=== PATIENT | female | born 1995 | race Caucasian/White ===

== ENCOUNTER 2020-06-25 20:30 | Emergency (ER) | payer OTHER ==
[~2020-06-25] VITALS: Ht 157.5 cm; Wt 93.1 kg
[2020-06-25 20:30] VITALS: BP 126/73
[2020-06-25] MEDS ORDERED: ASPI81CH33 PO (20:52)
[2020-06-25] MEDS ORDERED: PRED10PA2 PO (20:52)
[2020-06-25] MEDS ORDERED: KETOROLAC 30 MG/ML 1ML VIAL IV ONE (21:45)
[2020-06-25 21:52] LABS: HEMATOCRIT 39.1 % (36.0-47.0); HEMOGLOBIN 12.2 g/dl (12.0-15.5); MEAN CORPUSCULAR HEMOGLOBIN 26.8 pg (27.0-33.0); MEAN CORPUSCULAR HGB CONC 31.2 g/dl (32.0-36.5); MEAN CORPUSCULAR VOLUME 85.9 fl (80.0-96.0); PLATELET COUNT, AUTOMATED 369 10^3/uL (150-450); RED BLOOD COUNT 4.55 10^6/uL (4.00-5.40); WHITE BLOOD COUNT 14.5 10^3/uL (4.0-10.0)
[2020-06-25] MEDS ORDERED: ISOVUE-370 76% 100ML VIAL As Ordered ONE (21:57)
--- NOTE | 2020-06-25 22:33 | REPVR ---
PROCEDURE INFORMATION: Exam: CT Neck With Contrast Exam date and time: 06/25/2020 10:17 PM Age: 25 years old Clinical indication: Neck pain; Additional info: Left jaw swelling, dental decay TECHNIQUE: Imaging protocol: Computed tomography images of the neck with intravenous contrast. Radiation optimization: All CT scans at this facility use at least one of these dose optimization techniques: automated exposure control; mA and/or kV adjustment per patient size (includes targeted exams where dose is matched to clinical indication); or iterative reconstruction. Contrast material: ISOVUE 370; Contrast volume: 75 ml; Contrast route: INTRAVENOUS (IV); COMPARISON: No relevant prior studies available. FINDINGS: Paranasal sinuses: There is mild sinus mucosal disease, with no air-fluid level identified. Nasopharynx: Unremarkable. Dental: There is a periapical lucency associated with a left mandibular molar tooth. There is no overlying periosteal abscess. Oropharynx: Unremarkable. No significant tonsillar enlargement. Hypopharynx: Unremarkable. Larynx: Unremarkable. Normal epiglottis. Retropharyngeal space: Unremarkable. Submandibular/Parotid glands: Normal. Glands are normal in size. Thyroid: Normal. No enlarged or calcified nodules. Lymph nodes: Unremarkable. No lymphadenopathy. Trachea: Visualized trachea is unremarkable. Lungs: Unremarkable as visualized. Bones/joints: Unremarkable. No acute fracture. IMPRESSION: Periapical lucency associated with the left mandibular molar tooth. No overlying periosteal abscess is seen. Electronically signed by: Earnestine Beasley On 06/25/2020 22:33:34 PM
[2020-06-25 22:35] LABS: ANISOCYTOSIS 1+; ATYPICAL LYMPH 4 % (0-5); BASOPHILS 1 % (0-1); EOSINOPHILS 3 % (0-3); LYMPHOCYTES 28 % (16-44); MONOCYTES 3 % (0-5); NEUTROPHILS 61 % (28-66); PLATELET ESTIMATE NORMAL (NORMAL)
[2020-06-25 22:39] LABS: ERYTHROCYTE SEDIMENTATION RATE 16 mm/hr (0-20)
[2020-06-25] MEDS ORDERED: AMPICILLIN SOD/SULBACTAM SOD 3 GM in D5W MINI-BAG PLUS 100 ML IV ONE (22:45)
[2020-06-25] MEDS ORDERED: AUGM875T28 PO (22:49)
[2020-06-25] MEDS ORDERED: NORCO, ANEXSIA 5/325MG TABLET (HYDROcodone/ACETAMINOPHEN) PO ONE (23:00)
[2020-06-25] MEDS ORDERED: IBUP80TA PO (23:09)
--- NOTE | 2020-06-26 09:31 | ECGEPIP ---
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
== END 2020-06-25 23:15 | disposition home or self-care (01) ==
LOC: M ED 20:30
DX: K08.89 Other specified disorders of teeth and supporting structures (principal); K02.9 Dental caries, unspecified; R68.84 Jaw pain; R00.0 Tachycardia, unspecified; Z88.6 Allergy status to analgesic agent; Z88.5 Allergy status to narcotic agent; Z91.048 Other nonmedicinal substance allergy status; Z79.52 Long term (current) use of systemic steroids; Z79.82 Long term (current) use of aspirin
CPT/HCPCS: 70491; 80047; 84702; 85025; 85652; 86140; 87040; 93005; 96374; 96375; 99284; J1885; Q9967

== ENCOUNTER → 2020-07-02 | Outpatient (CLI) | payer OTHER ==
[~2020-07-02] MED LIST: ASPI81CH33 PO; AUGM875T28 PO; IBUP80TA PO; PRED10PA2 PO
[2020-07-02 18:40] LABS: MAGNESIUM LEVEL 2.2 MG/DL (1.8-2.4); PHOSPHORUS LEVEL 4.3 MG/DL (2.5-4.9); TOTAL PROTEIN 7.5 GM/DL (6.4-8.2)
[2020-07-02 18:51] LABS: PTH INTACT 28.7 PG/ML (18.5-88.0)
[2020-07-03 10:50] LABS: TOTAL 25(OH) VITAMIN D 32.2 NG/ML (30.0-100.0)
[2020-07-03 14:21] LABS: ALBUMIN 4.35 GM/DL (3.29-5.55); ALPHA-1-GLOBULIN % 5.1 % (2.9-4.9); ALPHA-1-GLOBULINS 0.38 GM/DL (0.17-0.41); ALPHA-2-GLOBULINS 0.84 GM/DL (0.42-0.99); ALPHA-2-GLOBULINS % 11.2 % (7.1-11.8); BETA-1-GLOBULINS 0.52 GM/DL (0.28-0.60); BETA-1-GLOBULINS % 6.9 % (4.7-7.2); BETA-2-GLOBULINS 0.47 GM/DL (0.19-0.55); BETA-2-GLOBULINS % 6.2 % (3.2-6.5); GAMMA GLOBULIN % 12.6 % (11.1-18.8); GAMMA GLOBULINS 0.95 GM/DL (0.65-1.58)
[2020-07-04 11:03] LABS: DRVV SCREEN 44.6 SEC
[2020-07-04 11:06] LABS: PTT LUPUS TYPE ANTICOAG SCREEN 1.1 (0-1.2)
[2020-07-04 15:09] LABS: E CHAFFEENSIS IgG TITER Negative (Neg:<1:64); E CHAFFEENSIS IgM TITER Negative (Neg:<1:20); HUMAN GRANULCYTIC EHRLIC IgG Negative (Neg:<1:64); HUMAN GRANULCYTIC EHRLIC IgM Negative (Neg:<1:20); SSA SJOGRENS A <0.2 AI (0.0-0.9); SSB SJOGRENS B 6.6 AI (0.0-0.9)
== END ==
LOC: M LAB 12:50
PROVIDERS: ATTEND Internal Medicine
DX: M89.9 Disorder of bone, unspecified (principal); R23.1 Pallor; R68.2 Dry mouth, unspecified

== ENCOUNTER → 2020-07-05 | Outpatient (CLI) | payer OTHER ==
--- NOTE | 2020-07-05 15:27 | DEXA ---
INDICATION: M89.9 BONE DISORDER. COMPARISON: None. TECHNIQUE: Bone density was measured using dual-energy x-ray absorptiometry (DEXA). FINDINGS: AP SPINE L1-L4 BMD 1.292 g/cm2 Young Adult T-Score 0.8 Age Matched Z-Score 0.8. LT FEMUR, TOTAL BMD 1.036 g/cm2 Young Adult T-Score 0.2 Age Matched Z-Score 0.2. LT NECK BMD 1.111 g/cm2 Young Adult T-Score 0.5 Age Matched Z-Score 0.6. RT FEMUR, TOTAL BMD 1.057 g/cm2 Young Adult T-Score 0.4 Age Matched Z-Score 0.4. RT NECK BMD 1.131 g/cm2 Young Adult T-Score 0.7 Age Matched Z-Score 0.7. IMPRESSION: There is normal bone density of the spine. There is normal bone density of the left hip. There is normal bone density of the right hip. FOLLOW-UP: Recommendation for the next bone density exam: 2 years. <Electronically signed by Yash Yanez > 07/05/20 [id number]
== END ==
LOC: M WHC 14:13
PROVIDERS: ATTEND Internal Medicine
DX: M89.9 Disorder of bone, unspecified (principal)

== ENCOUNTER → 2020-07-16 | Outpatient (CLI) | payer OTHER ==
--- NOTE | 2020-07-16 15:38 | REP ---
INDICATION: O09.00 PRGNANCY WITH HX OF INFERTILITY. COMPARISON: None. TECHNIQUE: Real-time sonographic evaluation of pelvis performed utilizing transabdominal and endovaginal technique. FINDINGS: Uterus demonstrates a gestational sac in the endometrial canal with surrounding decidual reaction. The gestational sac contains a yolk sac. The mean sac diameter is 8 mm which corresponds to an estimated gestational age of 5 weeks 3 days. EDC is 03/15/2021. No pole is seen. No subchorionic hemorrhage is seen. There is trace free fluid in the cul-de-sac. Cervical length is approximately 3.6 cm. The ovaries appear grossly unremarkable. There is no gross adnexal mass. IMPRESSION: Intrauterine gestational sac contains a yolk sac. No pole is seen. Estimated gestational age is 5 weeks 3 days, EDC 03/15/2021. Recommend follow-up ultrasound in 10-14 days to document viability. <Electronically signed by Yash Yanez > 07/16/20 [id number]
== END ==
LOC: M WHC 14:52
PROVIDERS: ATTEND Obstetrics & Gynecology Reproductive Endocrinology
DX: O09.00 Supervision of pregnancy with history of infertility, unspecified trimester (principal); Z3A.01 Less than 8 weeks gestation of pregnancy

== ENCOUNTER → 2020-07-23 | Outpatient (CLI) | payer OTHER ==
--- NOTE | 2020-07-23 10:50 | REP ---
INDICATION: O09.00 WITH HX OF INFERTILITY COMPARISON: 07/16/2020 TECHNIQUE: Transvaginal 1st trimester obstetrical ultrasound with color Doppler evaluation. FINDINGS: Single live early intrauterine is appreciated. Gestational sac with yolk sac and pole identified. [place]-rump length of 4 mm corresponds to 6 weeks 0 days gestational age with estimated date of delivery 03/18/2021. heart rate equals 111 beats per minute. No gross abnormalities are identified. IMPRESSION: Single live early intrauterine at 6 weeks 0 days gestational age. Complete anatomical assessment should be performed and 19-20 weeks. <Electronically signed by Juan Jose Purcell > 07/23/20 [id number]
== END ==
LOC: M WHC 10:03
PROVIDERS: ATTEND Obstetrics & Gynecology Reproductive Endocrinology
DX: O09.00 Supervision of pregnancy with history of infertility, unspecified trimester (principal); Z3A.01 Less than 8 weeks gestation of pregnancy

== ENCOUNTER 2020-08-27 02:46 | Emergency (ER) | payer OTHER ==
[~2020-08-27] VITALS: Ht 162.6 cm; Wt 96.1 kg
[2020-08-27] MEDS ORDERED: SYNT25TA (03:06)
[2020-08-27] MEDS ORDERED: FERR325T18 (03:06)
[2020-08-27] MEDS ORDERED: HYDR200T3 (03:06)
[2020-08-27] MEDS ORDERED: ENOX30IN3 (03:06)
[2020-08-27] MEDS ORDERED: D31000TA2 PO (03:06)
[2020-08-27] MEDS ORDERED: HEARTAB2 (03:06)
[2020-08-27] MEDS ORDERED: VITA50TA7 (03:06)
[2020-08-27] MEDS ORDERED: PREN1TAB14 (03:06)
[2020-08-27] MEDS ORDERED: ENDO100S (03:06)
[2020-08-27 03:55] LABS: BASO # 0.1 10^3/uL (0.0-0.2); BASO % 0.4 % (0.0-1.0); EOS # 0.1 10^3/uL (0.0-0.5); EOS % 1.1 % (0.0-3.0); HEMATOCRIT 36.6 % (36.0-47.0); HEMOGLOBIN 12.3 g/dl (12.0-15.5); LYMPH # 2.3 10^3/uL (1.5-5.0); MEAN CORPUSCULAR HEMOGLOBIN 28.7 pg (27.0-33.0); MEAN CORPUSCULAR HGB CONC 33.6 g/dl (32.0-36.5); MEAN CORPUSCULAR VOLUME 85.3 fl (80.0-96.0); MONO # 0.7 10^3/uL (0.0-0.8); MONO % 5.3 % (0.0-5.0); NEUTROPHILS # 9.6 10^3/uL (1.5-8.5); NEUTROPHILS % 74.7 % (36.0-66.0); PLATELET COUNT, AUTOMATED 279 10^3/uL (150-450); RED BLOOD COUNT 4.29 10^6/uL (4.00-5.40); WHITE BLOOD COUNT 12.9 10^3/uL (4.0-10.0)
[2020-08-27 04:03] LABS: AMORPHOUS SEDIMENT SMALL (NEGATIVE); APPEARANCE, URINE HAZY (CLEAR); BACTERIA, URINE AUTO NEGATIVE (NEGATIVE); BILIRUBIN, URINE AUTO NEGATIVE (NEGATIVE); BLOOD, URINE BLOOD NEGATIVE (NEGATIVE); COLOR, URINE YELLOW (YELLOW); GLUCOSE, URINE (UA) AUTO NEGATIVE (NEGATIVE); KETONE, URINE AUTO NEGATIVE (NEGATIVE); LEUKOCYTE ESTERASE, URINE AUTO NEGATIVE (NEGATIVE); MUCUS, URINE SMALL (NEGATIVE); NITRITE, URINE AUTO NEGATIVE (NEGATIVE); PROTEIN, URINE AUTO NEGATIVE (NEGATIVE); RBC, URINE AUTO 1 /HPF (0-3); SPECIFIC GRAVITY URINE AUTO 1.006 (1.002-1.035); SQUAMOUS EPITHELIAL CELL UR AU 3 /HPF (0-6); UROBILINOGEN, URINE AUTO 0.2 mg/dL (0.0-2.0); WBC, URINE AUTO 3 /HPF (0-3)
[2020-08-27 04:11] LABS: INR 0.96
[2020-08-27 04:12] LABS: PARTIAL THROMBOPLASTIN TIME 31.7 SECONDS (24.2-38.5)
[2020-08-27 04:37] LABS: BLOOD UREA NITROGEN 4 MG/DL (7-18); CALCIUM LEVEL 9.5 MG/DL (8.5-10.1); CARBON DIOXIDE LEVEL 24 MEQ/L (21-32); CHLORIDE LEVEL 107 MEQ/L (98-107); GLOMERULAR FILTRATION RATE > 60.0 (>60); GLUCOSE, FASTING 82 MG/DL (70-100); HCG, SERUM QUANTITATIVE 47384 MIU/ML; POTASSIUM SERUM 3.6 MEQ/L (3.5-5.1); SODIUM LEVEL 140 MEQ/L (136-145)
--- NOTE | 2020-08-27 04:42 | REPVR ---
PROCEDURE INFORMATION: Exam: US First Trimester, Transabdominal Exam date and time: 08/27/2020 3:58 AM Age: 25 years old Clinical indication: Pain; Other: Lt adnexa; Gestational age or lmp: 11; ; Additional info: Vaginal bleeding TECHNIQUE: Imaging protocol: Real-time transabdominal obstetrical ultrasound of the maternal pelvis and a first trimester , less than 14 weeks 0 days, with image documentation. COMPARISON: No relevant prior studies available. FINDINGS: Gestation: Single living intrauterine with visualization of the intrauterine gestational sac and pole. Embryonic/ heart rate: heart rate 167 bpm. Placenta: No subchorionic bleed. Amniotic fluid: Amniotic fluid is normal for gestational age. BIOMETRY: Gestational age (AUA): Ultrasound gestational age 11 weeks 4 days. Estimated due date (AUA): CAROLYN 03/14/2021. [place]-Rump length: [place]-rump length measures 4.6 cm. MATERNAL: Uterus: Unremarkable. Cervix: Unremarkable. Right adnexa: Limited visualization of the right ovary is unremarkable. Left adnexa: Limited visualization of the left ovary demonstrates a probable 13 mm follicle. Intraperitoneal space: No free fluid. IMPRESSION: Single viable IUP with ultrasound gestational age based on crown-rump length of 11 weeks 4 days. This is concordant with dates by reported LMP. Electronically signed by: Juan Jose Cormier On 08/27/2020 04:42:30 AM
[2020-08-27 05:58] VITALS: BP 135/83
== END 2020-08-27 05:59 | disposition home or self-care (01) ==
LOC: M ED 02:46
DX: O26.891 Other specified pregnancy related conditions, first trimester (principal); R10.32 Left lower quadrant pain; O99.111 Other diseases of the blood and blood-forming organs and certain disorders involving the immune mechanism complicating pregnancy, first trimester; D68.61 Antiphospholipid syndrome; Z3A.11 11 weeks gestation of pregnancy; Z88.6 Allergy status to analgesic agent; Z88.5 Allergy status to narcotic agent; Z91.048 Other nonmedicinal substance allergy status; Z79.899 Other long term (current) drug therapy; Z79.82 Long term (current) use of aspirin

== ENCOUNTER 2020-11-06 13:16 | Emergency (ER) | payer OTHER ==
[~2020-11-06] VITALS: Ht 157.5 cm; Wt 96.1 kg
[~2020-11-06 13:16] MED LIST changes: +D31000TA2 PO; +ENDO100S; +ENOX30IN3; +FERR325T18; +HEARTAB2; +HYDR200T3; +PREN1TAB14; +PYRI50TA41; +SYNT25TA
[2020-11-06 13:17] VITALS: BP 124/58
[2020-11-06] MEDS ORDERED: OMEP-218 (13:37)
[2020-11-06] MEDS ORDERED: UNIS25TA3 (13:37)
[2020-11-06] MEDS ORDERED: FLON1SPR NARES (14:30)
[2020-11-06] MEDS ORDERED: CETI10CA2 PO (14:30)
== END 2020-11-06 14:49 | disposition home or self-care (01) ==
LOC: M ED 13:16
DX: J32.9 Chronic sinusitis, unspecified (principal); E03.9 Hypothyroidism, unspecified; F43.10 Post-traumatic stress disorder, unspecified; Z79.899 Other long term (current) drug therapy; Z79.890 Hormone replacement therapy; Z79.82 Long term (current) use of aspirin; Z88.5 Allergy status to narcotic agent; Z88.8 Allergy status to other drugs, medicaments and biological substances; Z91.048 Other nonmedicinal substance allergy status

== ENCOUNTER 2020-12-05 20:27 | Outpatient (CLI) | payer OTHER ==
[~2020-12-05 20:27] MED LIST changes: +CETI10CA2 PO; +FLON1SPR NARES; +OMEP-218; +UNIS25TA3
[2020-12-05] MEDS ORDERED: FLUCONAZOLE 50MG TABLET PO ONE (22:25)
--- NOTE | 2020-12-05 22:34 | IPNPDOC ---
Obstetrical Progress Note Date of Service Dec 05, 2020 Subjective Ms. Smiley is a 25yo at 26+0 presents today for rule out ROM. She reports she has been leaking intermittently since yesterday, clear fluid, no odors. She denied VB, decreased FM. She did endorse intermittent contractions that she has had for weeks. She reports she discussed them at [facility] and they determined she "was fine." She reports they are worse when she walks a lot, they have also been worse over the past 48h. They are although irregular and not very painful. She denied n/v/d, cp, sob, santos, visual changes, f/c, vaginal discharge urinary sx. On ROS she endorsed hot flashes x2d and at night for "a while now." Assessment Heart Rate (FHR): 150 Variability: Moderate Accelerations: Positive Decelerations: Other Tocometer Contractions: Yes Frequency: irregular Sterile Vaginal Examination Dilation: None Station: -3 Cervical Consistency: Firm Cervical Position: Posterior Postion/Presentation: Cephalic presentation (by US) Assessment and Plan Additional Comments Ms. Smiley is a 25yo at 26+0 presents today for rule out ROM. Her is c/b sjorgans/lupus/APAS on lovenox and ASA, reported recent diagnosis of GDM, subclinical hypothyroidism, obesity, anxiety and depression. VS normal. NST is appropriate for gestational age. There is an area that appears to have a deceleration but it is not correlated with any contraction. She is omid on the monitor for a short period regularly, but mostly irregularly. She does not palpate all of them. On exam she was C/T/H, visually closed, and there was copious thick white discharge in the vaginal vault. There was no pooling. GENET/WP significant for abundant budding yeast. Ferning and nitrazine were negative. FFN was negative. UA was contaminated, but had negative nitrites. UCx was sent. On TVUS her cervix was 3.9cm and had no changes with valsalva. On TAUS her baby was cephalic, the SALO was 20.1cm, and a BPP was 10/10. - Suspected ROM - not likely at this time given normal SALO, negative pooling, ferning and nitrazine. Suspect this sensation is due to vaginitis. Urinary origin of this sensation is unlikely given no overt signs on UA but it was contaminated so UCx was sent. - Irregular contractions - PTL unlikely at this time given long/closed cervix without dynamic changes, negative FFN, no change in the cervix when has had symptoms for 48h - Vaginal candidiasis - treated in triage with fluconazole - Hot flashes - will recheck TSH and call with abnormal results - Possible deceleration on NST - given gestational age the significance of this is not determined, her NST is reactive and has good variability, she also had a 10/10 BPP Provided with routine OB return precautions and strict PTL return precautions Otherwise to follow up at next KAREN ESPINOZA DO Dec 05, 2020 22:34
== END 2020-12-05 23:24 | disposition home or self-care (01) ==
LOC: M LDO 20:27
PROVIDERS: ATTEND Obstetrics & Gynecology
DX: O47.02 False labor before 37 completed weeks of gestation, second trimester (principal); Z3A.26 26 weeks gestation of pregnancy; O26.892 Other specified pregnancy related conditions, second trimester; M35.00 Sjogren syndrome, unspecified; M32.9 Systemic lupus erythematosus, unspecified; O99.282 Endocrine, nutritional and metabolic diseases complicating pregnancy, second trimester; E03.9 Hypothyroidism, unspecified; O24.419 Gestational diabetes mellitus in pregnancy, unspecified control; O23.592 Infection of other part of genital tract in pregnancy, second trimester; B37.9 Candidiasis, unspecified
CPT/HCPCS: 36415; 81001; 82731; 84443; G0378; G0463

== ENCOUNTER 2020-12-31 19:31 | Outpatient (CLI) | payer OTHER ==
[~2020-12-31] VITALS: Ht 157.5 cm; Wt 99.2 kg
[2020-12-31 19:55] VITALS: BP 116/54
--- NOTE | 2020-12-31 21:42 | IPNPDOC ---
Text Note Date of Service The patient was seen on 12/31/20. NOTE 25 yo at 29+5 weeks gestation presents to L&D with the complaint of an episode of sharp abdominal pain at ~1730 followed by intermittent cramping ever since along with contractions. She reports when her baby moves in the uterus is when she has pain. She denies any vaginal bleeding, discharge, or leakage of fluid. She endorses feeling movement. She receives her care at the [facility] in [place] due to her myriad medical issues. Chaperoned by RN Vitals - VSS, afebrile, normotensive, HR in the 100s. General - AAOX3, sitting up in bed, NAD Abdomen - Gravid uterus, no fundal tenderness. Abdomen soft. No rigidity, rebound tenderness, or guarding. Pelvic - Normal external female genitalia. Speculum inserted into the vagina and the cervix was visualized. Physiologic discharge noted in the vaginal vault. Swab obtained. Cervix visually closed. Speculum removed. Cervix cl/thick/high to digital exam. Cervix unchanged after repeat exam in 1 hour. FHR tracing - Appropriate for gestational age. Moderate variability, +accels, no decels. Questionable contraction on toco initially. No CTX later after prolonged monitoring Microscopy - negative for BV or yeast Bedside TVUS - Cervical length 3.9cm with no funneling or dynamic changes with valsalva Bedside TAUS - Viable SIUP in cephalic presentation. +gross movement. SALO 15.8 cm. Placenta posterior with no lakes or retroplacental lucency. UA - Dirty catch. Neg nitrite, neg leuk est. 4 WBCs, 4 RBCs. No evidence of labor or infection. Reassuring status. Suspect MSK pain (she has a displaced SI joint per her report) at least partially contributing to her symptoms. No clinical evidence of placental abruption. She was given 1000mg of tylenol and 50mg of benadryl with improvement in symptoms. Patient offered observation overnight due to her pain level vs discharge home. She opted for discharge home. Follow up at the [facility] as scheduled. Return to care sooner for any urgent concerns. All questions answered. 60 minutes of patient care Johnny Barron, DO VS,Fishbone, I+O VS, Fishbone, I+O Vital Signs Date Time Temp Pulse Resp B/P (MAP) Pulse Ox O2 Delivery O2 Flow Rate FiO2 12/31/20 19:55 98.6 109 18 116/54 (74) JOHNNY BARRON DO December 31, 2020 21:41
[2020-12-31] MEDS ORDERED: ACETAMINOPHEN 500 MG TAB PO ONE (22:00)
[2020-12-31] MEDS ORDERED: diphenhydrAMINE 25MG CAP PO SCH (22:30)
[2021-01-01] MEDS ORDERED: diphenhydrAMINE 25MG CAP PO SCH (21:00)
== END 2020-12-31 22:16 | disposition home or self-care (01) ==
LOC: M LDO 19:31
PROVIDERS: ATTEND Obstetrics & Gynecology
DX: O26.893 Other specified pregnancy related conditions, third trimester (principal); R10.9 Unspecified abdominal pain; Z3A.29 29 weeks gestation of pregnancy
CPT/HCPCS: 76815; 81001; G0378; G0463

== ENCOUNTER 2021-01-05 19:11 | Outpatient (CLI) | payer OTHER ==
[~2021-01-05] VITALS: Ht 157.5 cm; Wt 98.9 kg
[2021-01-05 19:28] VITALS: BP 129/60
[2021-01-05 21:18] VITALS: BP 129/57
--- NOTE | 2021-01-05 21:20 | REPVR ---
PROCEDURE INFORMATION: Exam: US Abdomen, Limited; Right Upper Quadrant Exam date and time: 01/05/2021 8:34 PM Age: 25 years old Clinical indication: Abdominal pain; Epigastric; ; Additional info: Right upper quadrant pain TECHNIQUE: Imaging protocol: US abdomen. Real time ultrasound with image documentation. Limited exam focused on the right upper quadrant. COMPARISON: No relevant prior studies available. FINDINGS: Liver: The echogenicity of the liver is within normal limits. No liver lesion is identified from the images obtained. The contour of the liver is smooth. Gallbladder: Biliary sludge and calculi are noted in the gallbladder. No gallbladder wall thickening or pericholecystic fluid is present. According to the interventional radiology technologist notes, the patient was tender over the right upper quadrant of the abdomen. Common bile duct: The common bile duct is normal in caliber and at the level of the kashmir hepatis measures 4 mm. Pancreas: The imaged portion of the pancreas is unremarkable. Right kidney: The right kidney is normal in appearance and measures 12.2 cm in length. There is no renal cortical thinning. The renal cortical echogenicity is within normal limits. No renal lesion is seen. There is no hydronephrosis. No obvious stones are seen in the renal collecting system. Intraperitoneal space: No free fluid is seen in the right upper quadrant of the abdomen. Other findings: There is a single live intrauterine with a heart rate of 153 bpm. IMPRESSION: Cholelithiasis and tenderness over the right upper quadrant of the abdomen, which are findings that can be seen with acute cholecystitis. Electronically signed by: Chris Devine On 01/05/2021 21:19:57 PM
--- NOTE | 2021-01-05 21:45 | IPNPDOC ---
Text Note Date of Service The patient was seen on 01/05/21. NOTE 25 yo at 30+3 weeks gestation presented to L&D with the complaint of RUQ pain and intermittent contractions. She reports the RUQ pain has been present today and is fairly constant. She also endorses nausea but denies any vomiting. She has had contractions on and off over the last week. She denies any vaginal bleeding or leakage of fluid. She endorses movement. She also denies any fevers/chills, SOB, chest pain, dysuria, or constipation. She gets all her care in [place] at the center and will be delivering there. Chaperoned by L&D RN Vitals - VSS, afebrile, normotensive, non tachycardic General - AAOX3, sitting up in bed, pleasant and conversant, NAD Abdomen - Gravid uterus, no fundal tenderness. Mild tenderness to palpation in RUQ. Abdomen otherwise soft. No guarding or rigidity or rebound tenderness. Cervix - cl/thick/high FHR tracing - Cat I and appropriate for gestational age. +accels, no decels. Intermittent contractions, but not consistent. RUQ US: Cholelithiasis with biliary sludge in the gallbladder. No gallbladder wall thickening and no pericholecystic fluid. Common bile duct normal. Pancreas and right kidney normal. No evidence of nephrolithiasis. Liver normal. No evidence of labor. Cervix unchanged from exam 5 days ago. Reassuring status. Gall stones noted on US. However, Katy does not have any findings of acute cholecystitis. She has a benign exam, no fever, and no pericholecystic fluid or gallbladder wall thickening on US. No need for acute intervention today. She also reports feeling very hungry and would like to eat. She has her next appointment in [place] on Thursday. I recommended that she follow up there. She is to return to care sooner should she experience worsening pain, fevers/chills, bleeding, leakage of fluid, decreased movement, or any other urgent concerns. All questions answered. 30 minutes of patient care Johnny Barron, DO VS,Fishbone, I+O VS, Fishbone, I+O Vital Signs Date Time Temp Pulse Resp B/P (MAP) Pulse Ox O2 Delivery O2 Flow Rate FiO2 01/05/21 19:28 97.3 105 129/60 (83) JOHNNY BARRON DO January 05, 2021 21:45
== END 2021-01-05 21:57 | disposition home or self-care (01) ==
LOC: M LDO 19:11
PROVIDERS: ATTEND Obstetrics & Gynecology
DX: O47.03 False labor before 37 completed weeks of gestation, third trimester (principal); Z3A.30 30 weeks gestation of pregnancy; O26.893 Other specified pregnancy related conditions, third trimester; R10.11 Right upper quadrant pain; O99.613 Diseases of the digestive system complicating pregnancy, third trimester; K80.20 Calculus of gallbladder without cholecystitis without obstruction; Z88.5 Allergy status to narcotic agent; Z91.040 Latex allergy status
CPT/HCPCS: 59025; 76705; G0378; G0463

== ENCOUNTER 2021-01-20 20:32 | Outpatient (CLI) | payer OTHER ==
[~2021-01-20] VITALS: Ht 157.5 cm; Wt 99.2 kg
[2021-01-20 20:56] VITALS: BP 121/58
[2021-01-20] MEDS ORDERED: LOVE1INJ SC (21:13)
[2021-01-20] MEDS ORDERED: LANTINJ4 SC (21:16)
[2021-01-20 22:46] LABS: HEMATOCRIT 33.2 % (36.0-47.0); HEMOGLOBIN 11.3 g/dl (12.0-15.5); MEAN CORPUSCULAR HEMOGLOBIN 29.9 pg (27.0-33.0); MEAN CORPUSCULAR VOLUME 87.8 fl (80.0-96.0); PLATELET COUNT, AUTOMATED 304 10^3/uL (150-450); RED BLOOD COUNT 3.78 10^6/uL (4.00-5.40); WHITE BLOOD COUNT 17.5 10^3/uL (4.0-10.0)
--- NOTE | 2021-01-20 22:50 | REPVR ---
PROCEDURE INFORMATION: Exam: US , Limited Exam date and time: 01/20/2021 10:17 PM Age: 25 years old Clinical indication: Lmp or gestational age (in weeks): 32; Antepartum complications; Decreased movements; Fetus 1; ; Additional info: Bpp decreased movement at 32 weeks cervical length TECHNIQUE: Imaging protocol: Real-time ultrasound of the maternal uterus with image documentation. Exam focused on the clinical indication. COMPARISON: US OB<[id number] SINGLE OR 1ST GEST 07/23/2020 10:21 AM FINDINGS: Gestation: Single intrauterine fetus. presentation: Cephalic presentation. heart rate: heartbeat of 152 bpm. Placenta: Posterior placenta. Amniotic fluid index: SALO of 12.2 cm. Biophysical profile score of 8/8. MATERNAL: Cervix: Closed cervix measuring 3.3 cm. IMPRESSION: 1. Single live intrauterine fetus in cephalic presentation. 2. Closed cervix measuring 3.3 cm. 3. Biophysical profile score of 8/8. Electronically signed by: Jameel Jackson On 01/20/2021 22:49:21 PM
[2021-01-20 22:53] LABS: CREATININE,RANDOM URINE 64.6 MG/DL; TOTAL PROTEIN,RANDOM URINE 19.5 MG/DL (0.0-12.0)
[2021-01-20 22:58] VITALS: BP 119/57
[2021-01-20 23:06] LABS: ALT/SGPT 28 U/L (12-78); BILIRUBIN,TOTAL 0.2 MG/DL (0.2-1.0); CREATININE FOR GFR 0.49 MG/DL (0.55-1.30); GLOMERULAR FILTRATION RATE > 60.0 (>60); LDH LACTATE DEHYDROGENASE 123 U/L (84-246); URIC ACID 4.6 MG/DL (2.6-6.0)
--- NOTE | 2021-01-20 23:41 | IPNPDOC ---
Text Note Date of Service The patient was seen on 01/20/21. NOTE Item Value Date Time Urine Color YELLOW 01/20/212148 Urine Appearance HAZY 01/20/212148 Urine pH 7.0 UNITS 01/20/212148 Urine Specific [place] 1.006 01/20/212148 Urine Protein NEGATIVE mg/dL 01/20/212148 Urine Glucose (UA) NEGATIVE mg/dL 01/20/212148 Urine Ketones NEGATIVE mg/dL 01/20/212148 Urine Blood NEGATIVE 01/20/212148 Urine Nitrite NEGATIVE 01/20/212148 Urine Bilirubin NEGATIVE 01/20/212148 Urine Urobilinogen 0.2 mg/dL 01/20/212148 Urine Leukocyte Esterase NEGATIVE 01/20/212148 Urine WBC (Auto) 2 /HPF 01/20/212148 Urine RBC (Auto) 1 /HPF 01/20/212148 Urine Hyaline Casts (Auto) 0 /LPF 01/20/212148 Urine Bacteria (Auto) NEGATIVE 01/20/212148 Urine Squamous Epithelial Cells 4 /HPF 01/20/212148 Urine Amorphous Sediment SMALL H 01/20/212148 Urine Random Creatinine 64.6 MG/DL 01/20/212148 Urine Random Total Protein 19.5 MG/DL H 01/20/212148 Item Value Date Time Creatinine 0.49 MG/DL L 01/20/212233 Glomerular Filtration Rate > 60.0 01/20/212233 Uric Acid 4.6 MG/DL 01/20/212233 Total Bilirubin 0.2 MG/DL 01/20/212233 Aspartate Amino Transf (AST/SGOT) 16 U/L 01/20/212233 Alanine Aminotransferase (ALT/SGPT) 28 U/L 01/20/212233 Lactate Dehydrogenase 123 U/L 01/20/212233 Item Value Date Time White Blood Count 17.5 10^3/uL H 01/20/212233 Red Blood Count 3.78 10^6/uL L 01/20/212233 Hemoglobin 11.3 g/dl L 01/20/212233 Hematocrit 33.2 % L 01/20/212233 Mean Corpuscular Volume 87.8 fl 01/20/212233 Mean Corpuscular Hemoglobin 29.9 pg 01/20/212233 Mean Corpuscular Hemoglobin Concent 34.0 g/dl 01/20/212233 Red Cell Distribution Width 12.3 % 01/20/212233 Platelet Count 304 10^3/uL 01/20/212233 Vital Signs Label Value Date Time Pulse 82 01/20/212257 Respiratory Rate 20 bpm 01/20/212257 Blood Pressure Assessment 119/57 (77) 01/20/212257 Source Automatic Cuff (NIBP) Blood Pressure Assessment 121/58 (79) 01/20/212055 Source Automatic Cuff (NIBP) Respiratory Rate 20 bpm 01/20/212055 Pulse 110 01/20/212055 Patient Temperature 97.2 degrees F 01/20/212055 Temperature Source Temporal 01/20/21205501/20/2021 2145 pm 25 y.0 center patient told to come here for delivery and then baby and she would be transferred to [facility]. .PATIENT MAIN COMPLAINT IS UNABLE TO FEEL MOVEMENT X 3 DAYS AND CONTRACTIONS OF MODERATE INTENSITY. RISK FACTOR LUPUS SJGREN'S SYNDROME SSB ANTIBODY POSITIVE ANTIPHOSPHOLIPID ANTIBODY SYNDROME BUT NOT CONSISTENT WITH ANTIBODIES HABITUAL ABORTER SUBCLINICAL HYPOTHYROID AGDM2 ON INSULIN MEDICATION ASA 81 MG LOVENOX PLAQUENIL PRILOSEC SYNTHROID UNISOM PLAN OF CARE HYDRATE SPOT SUGAR BPP NST PRE E PROFILE REVIEWED DELIVERY OPTION . THE RISK OF DELIVERY IS NOT PATIENT BUT HEART BLOCK . ALTHOUGH SMALL BABY NEED TO BE MONITORED BY NEONATOLOGY OR PEDIATRIC CARDIOLOGY. AFTER APPROPRIATE MONITORING WILL DISCHARGE HAS APPOINTMENT WED WITH [facility]. PATIENT EXPRESSED UNDERSTANDING TOTAL TIME 60 MINUTES NAME: NAIMA QUIÑONES DATE OF : 1995 BUSINESS NUMBER: [id number] AGE: 25 SEX: F REPORT #: [id number] ROOM: [facility] TECHNOLOGIST: VENUS DOCTOR: JOHNNY BEE DO Ordered for Date&Time: 01/05/212033 cc: [~ rep ct ivnm] Service Date&Time: EXAMINATION REQUESTED: Abdomen, limited US REASON FOR PATIENT VISIT: SIDE PAIN REASON FOR EXAMINATION: RIGHT UPPER QUADRANT Item Value Date Time Urine Color YELLOW 01/20/212148 Urine Appearance HAZY 01/20/212148 Urine pH 7.0 UNITS 01/20/212148 Urine Specific [place] 1.006 01/20/212148 Urine Protein NEGATIVE mg/dL 01/20/212148 Urine Glucose (UA) NEGATIVE mg/dL 01/20/212148 Urine Ketones NEGATIVE mg/dL 01/20/212148 Urine Blood NEGATIVE 01/20/212148 Urine Nitrite NEGATIVE 01/20/212148 Urine Bilirubin NEGATIVE 01/20/212148 Urine Urobilinogen 0.2 mg/dL 01/20/212148 Urine Leukocyte Esterase NEGATIVE 01/20/212148 Urine WBC (Auto) 2 /HPF 01/20/212148 Urine RBC (Auto) 1 /HPF 01/20/212148 Urine Hyaline Casts (Auto) 0 /LPF 01/20/212148 Urine Bacteria (Auto) NEGATIVE 01/20/212148 Urine Squamous Epithelial Cells 4 /HPF 01/20/212148 Urine Amorphous Sediment SMALL H 01/20/212148 VS,Fishbone, I+O VS, Fishbone, I+O Vital Signs Date Time Temp Pulse Resp B/P (MAP) Pulse Ox O2 Delivery O2 Flow Rate FiO2 01/20/21 20:56 97.2 110 20 121/58 (79) [facility] NAME: NAIMA QUIÑONES DATE OF : 1995 BUSINESS NUMBER: [id number] AGE: 25 SEX: F REPORT #: [id number] ROOM: [facility] TECHNOLOGIST: DENISHA DOCTOR: JOHNNY BEE DO Ordered for Date&Time: 01/05/212033 cc: [~ rep ct ivnm] Service Date&Time: This report is in Signed status. Interpretation performed by [facility]. Thank you for having your radiology procedures performed at [facility] RADIOLOGY REPORT Date&Time printed: [~ rep prt dt last] [~ rep prt tm last] Page 2 of 2 [place] [address] RADIOLOGY REPORT This report is in Signed status. Interpretation performed by [facility]. Thank you for having your radiology procedures performed at [facility] RADIOLOGY REPORT Date&Time printed: [~ rep prt dt last] [~ rep prt tm last] Page 1 of 2 NAME: NAIMA QUIÑONES DATE OF : 1995 BUSINESS NUMBER: [id number] AGE: 25 SEX: F REPORT #: [id number] ROOM: [facility] TECHNOLOGIST: DENISHA DOCTOR: JOHNNY BEE DO Ordered for Date&Time: 01/05/212033 cc: [~ rep ct ivnm] Service Date&Time: EXAMINATION REQUESTED: Abdomen, limited US REASON FOR PATIENT VISIT: SIDE PAIN REASON FOR EXAMINATION: RIGHT UPPER QUADRANT PROCEDURE INFORMATION: Exam: US Abdomen, Limited; Right Upper Quadrant Exam date and time: 01/05/2021 8:34 PM Age: 25 years old Clinical indication: Abdominal pain; Epigastric; ; Additional info: Right upper quadrant pain TECHNIQUE: Imaging protocol: US abdomen. Real time ultrasound with image documentation. Limited exam focused on the right upper quadrant. COMPARISON: No relevant prior studies available. FINDINGS: Liver: The echogenicity of the liver is within normal limits. No liver lesion is identified from the images obtained. The contour of the liver is smooth. Gallbladder: Biliary sludge and calculi are noted in the gallbladder. No gallbladder wall thickening or pericholecystic fluid is present. According to the surgical scrub technologist notes, the patient was tender over the right upper quadrant of the abdomen. Common bile duct: The common bile duct is normal in caliber and at the level of the kashmir hepatis measures 4 mm. Pancreas: The imaged portion of the pancreas is unremarkable. Right kidney: The right kidney is normal in appearance and measures 12.2 cm in length. There is no renal cortical thinning. The renal cortical echogenicity is within normal limits. No renal lesion is seen. There is no hydronephrosis. No obvious stones are seen in the renal collecting system. Intraperitoneal space: No free fluid is seen in the right upper quadrant of the abdomen. Other findings: There is a single live intrauterine with a heart rate of 153 bpm. IMPRESSION: Cholelithiasis and tenderness over the right upper quadrant of the abdomen, which are findings that can be seen with acute cholecystitis. Electronically signed by: Natalia Devine On 01/05/2021 21:19:57 PM DD: NATALIA DEVINE MD 01/05/212033 DT: ROSELYN 01/05/212118 DS: JAI 01/05/212118 [facility] NAME: NAIMA QUIÑONES DATE OF : 1995 BUSINESS NUMBER: [id number] AGE: 25 SEX: F REPORT #: [id number] ROOM: [facility] TECHNOLOGIST: AMANDA DOCTOR: Sushant Bray MD Ordered for Date&Time: 01/20/212145 cc: [~ rep ct ivnm] Service Date&Time: 01/20/212216 This report is in Signed status. Interpretation performed by [facility]. Thank you for having your radiology procedures performed at [facility] RADIOLOGY REPORT Date&Time printed: [~ rep prt dt last] [~ rep prt tm last] Page 2 of 2 [place] [address] RADIOLOGY REPORT This report is in Signed status. Interpretation performed by [facility]. Thank you for having your radiology procedures performed at [facility] RADIOLOGY REPORT Date&Time printed: [~ rep prt dt last] [~ rep prt tm last] Page 1 of 2 NAME: NAIMA QUIÑONES DATE OF : 1995 BUSINESS NUMBER: [id number] AGE: 25 SEX: F REPORT #: [id number] [facility] TECHNOLOGIST: AMANDA DOCTOR: Sushant Bray MD Ordered for Date&Time: 01/20/212145 cc: [~ rep ct ivnm] Service Date&Time: 01/20/212216 EXAMINATION REQUESTED: Obs. Limited, SLAO US REASON FOR PATIENT VISIT: LABOR CHECK REASON FOR EXAMINATION: bpp decreased movement at 32 weeks cervical length PROCEDURE INFORMATION: Exam: US , Limited Exam date and time: 01/20/2021 10:17 PM Age: 25 years old Clinical indication: Lmp or gestational age (in weeks): 32; Antepartum complications; Decreased movements; Fetus 1; ; Additional info: Bpp decreased movement at 32 weeks cervical length TECHNIQUE: Imaging protocol: Real-time ultrasound of the maternal uterus with image documentation. Exam focused on the clinical indication. COMPARISON: US OB<14WKS SINGLE OR 1ST GEST 07/23/2020 10:21 AM FINDINGS: Gestation: Single intrauterine fetus. presentation: Cephalic presentation. heart rate: heartbeat of 152 bpm. Placenta: Posterior placenta. Amniotic fluid index: SALO of 12.2 cm. Biophysical profile score of 8/8. MATERNAL: Cervix: Closed cervix measuring 3.3 cm. IMPRESSION: 1. Single live intrauterine fetus in cephalic presentation. 2. Closed cervix measuring 3.3 cm. 3. Biophysical profile score of 8/8. Electronically signed by: Lucero Jackson On 01/20/2021 22:49:21 PM DD: LUCERO JACKSON MD 01/20/212216 DT: ROSELYN 01/20/212248 DS: [facility] 01/20/212248 [~ rep ct labl] [~ rep ct labl] Sushant Bray MD January 20, 2021 22:34
== END 2021-01-20 23:40 | disposition home or self-care (01) ==
LOC: M LDO 20:32
PROVIDERS: ATTEND Obstetrics & Gynecology
DX: O36.8130 Decreased fetal movements, third trimester, not applicable or unspecified (principal); Z3A.32 32 weeks gestation of pregnancy; O24.414 Gestational diabetes mellitus in pregnancy, insulin controlled; O99.283 Endocrine, nutritional and metabolic diseases complicating pregnancy, third trimester; E03.9 Hypothyroidism, unspecified; O26.893 Other specified pregnancy related conditions, third trimester; M35.00 Sjogren syndrome, unspecified; M32.9 Systemic lupus erythematosus, unspecified; Z88.5 Allergy status to narcotic agent; Z91.040 Latex allergy status
CPT/HCPCS: 36415; 59025; 76815; 76819; 76820; 81001; 82247; 82565; 82570; 83615; 84156; 84450; 84460; 84550; 85027; G0378; G0463

== ENCOUNTER → 2021-02-07 | Outpatient (CLI) | payer OTHER ==
[~2021-02-07] MED LIST changes: +LANTINJ4 SC; +LOVE1INJ SC
--- NOTE | 2021-02-07 13:29 | REP ---
INDICATION: PREG, NON REACTIVE NST. COMPARISON: 01/20/2021. TECHNIQUE: Real-time sonographic evaluation of the gravid uterus performed. FINDINGS: Estimated gestational age is35 weeks 1 day, EDC 03/13/2021. Presentation: Cephalic Placenta posterior, grade 3. heart rate is recorded at 152 beats per minute. Amniotic fluid is subjectively normal. SALO 15.9, normal 7.9-24.9. Biophysical profile score 8/8. SD ratio umbilical artery 2.41, normal 1.67-3.58. RI 0.59, normal 0.46-0.72. IMPRESSION: Viable single intrauterine gestation as above. Biophysical profile score 8/8. <Electronically signed by Yash Yanez > 02/07/21 [id number]
== END ==
LOC: M RAD 12:06
PROVIDERS: ATTEND Obstetrics & Gynecology
DX: O76 Abnormality in fetal heart rate and rhythm complicating labor and delivery (principal)

== ENCOUNTER 2021-02-17 17:34 | Outpatient (CLI) | payer OTHER ==
[~2021-02-17] VITALS: Ht 157.5 cm; Wt 98.7 kg
[2021-02-17 17:52] VITALS: BP 87/47
[2021-02-17 18:03] VITALS: BP 131/58
[2021-02-17] MEDS ORDERED: PLAQ200T4 PO (18:10)
--- NOTE | 2021-02-17 18:49 | IPNPDOC ---
Text Note Date of Service The patient was seen on 02/17/21. NOTE 25 yo at 36+4 weeks gestation presented to L&D with the complaint of contractions, menstrual like cramping, and some low back pain. She denies any vaginal bleeding or leakage of fluid. She endorses movement. Chaperoned by RN Vitals - VSS, afebrile, normotensive, non tachycardic General - AAOX3, laying in bed, pleasant and conversant, NAD Abdomen - Gravid uterus. No fundal tenderness. Cervix - cl/thick/high, posterior Back exam - Mild tenderness to palpation at lumbosacral junction and coccyx FHR tracing - Cat I with moderate variability, +accels, no decels. Patient not in labor. Reassuring status. Refused urinalysis. Back pain likely MSK. She has an appointment tomorrow in [place] and an IOL scheduled in [place] for Thursday. Follow up as needed. All questions answered. 20 minutes of patient care DO DIANA Anthony Fishbone, I+O VSDia, I+O Vital Signs Date Time Temp Pulse Resp B/P (MAP) Pulse Ox O2 Delivery O2 Flow Rate FiO2 02/17/21 18:03 100 131/58 (82) 02/17/21 17:49 96.8 18 JOHNNY BEE DO Feb 17, 2021 18:49
== END 2021-02-17 18:31 | disposition home or self-care (01) ==
LOC: M LDO 17:34
PROVIDERS: ATTEND Obstetrics & Gynecology
DX: O26.893 Other specified pregnancy related conditions, third trimester (principal); R25.2 Cramp and spasm; Z3A.36 36 weeks gestation of pregnancy; M54.5 Low back pain; Z88.5 Allergy status to narcotic agent; Z91.040 Latex allergy status
CPT/HCPCS: 59025; G0378; G0463

== ENCOUNTER 2021-04-04 08:47 | Inpatient (IN) | payer OTHER ==
[~2021-04-04] VITALS: Ht 162.6 cm; Wt 92.4 kg
[~2021-04-04 08:47] MED LIST changes: +PLAQ200T4 PO
[2021-04-04] MEDS ORDERED: URSO300C3 PO (08:55)
[2021-04-04] MEDS ORDERED: BARICITINIB 2MG TABLET (OLUMIANT) FOR EUA PO SCH (09:00)
[2021-04-04] MEDS ORDERED: dexameTHASONE 4 MG/ML 1ML VIAL (J1100 PER 1MG) IV SCH (09:00)
[2021-04-04] MEDS ORDERED: ENOXAPARIN 40MG/0.4ML SYRINGE (J1650 PER 10MG) SC SCH (09:00)
[2021-04-04] MEDS ORDERED: ENOXAPARIN 100MG/1ML SYRINGE (J1650 PER 10MG) SC SCH (09:00)
[2021-04-04 10:54] LABS: BASO # 0.1 10^3/uL (0.0-0.2); BASO % 0.8 % (0.0-1.0); EOS # 0.2 10^3/uL (0.0-0.5); EOS % 1.8 % (0.0-3.0); HEMATOCRIT 42.5 % (36.0-47.0); HEMOGLOBIN 13.6 g/dl (12.0-15.5); LYMPH # 1.3 10^3/uL (1.5-5.0); MEAN CORPUSCULAR HEMOGLOBIN 27.8 pg (27.0-33.0); MEAN CORPUSCULAR VOLUME 86.9 fl (80.0-96.0); MONO # 0.6 10^3/uL (0.0-0.8); MONO % 7.1 % (2.0-8.0); NEUTROPHILS # 6.1 10^3/uL (1.5-8.5); NEUTROPHILS % 74.1 % (36.0-66.0); PLATELET COUNT, AUTOMATED 253 10^3/uL (150-450); RED BLOOD COUNT 4.89 10^6/uL (4.00-5.40); WHITE BLOOD COUNT 8.3 10^3/uL (4.0-10.0)
[2021-04-04 10:56] LABS: INR 0.9; PROTHROMBIN TIME 12.5 SECONDS (12.7-14.5)
--- NOTE | 2021-04-04 10:58 | REP ---
INDICATION: CHEST PAIN. COMPARISON: None. TECHNIQUE: Single portable AP view of the chest was performed. FINDINGS: There is no acute infiltrate or pulmonary edema. Lungs are clear. The heart is not significantly enlarged. The mediastinal silhouette is unremarkable. The visualized osseous structures are intact. IMPRESSION: No acute pulmonary disease. <Electronically signed by Yash Yanez > 04/04/21 1050
[2021-04-04 10:59] LABS: D-DIMER QUANT 468.77 ng/ml (<500)
[2021-04-04 11:15] LABS: ALBUMIN 3.8 GM/DL (3.2-5.2); ALT/SGPT 55 U/L (12-78); BILIRUBIN,DIRECT < 0.1 MG/DL (0.0-0.2); BILIRUBIN,TOTAL 0.2 MG/DL (0.2-1.0); BLOOD UREA NITROGEN 5 MG/DL (7-18); CALCIUM LEVEL 9.5 MG/DL (8.5-10.1); CARBON DIOXIDE LEVEL 26 MEQ/L (21-32); CHLORIDE LEVEL 110 MEQ/L (98-107); CK-MB VALUE MASS < 1.0 NG/ML (<3.6); CPK CREATINE PHOSPHOKINASE 39 U/L (26-192); CREATININE FOR GFR 0.61 MG/DL (0.55-1.30); FREE T4 0.92 NG/DL (0.76-1.46); GLOMERULAR FILTRATION RATE > 60.0 (>60); GLUCOSE, FASTING 100 MG/DL (70-100); MB/CK RELATIVE INDEX 2.56 (< OR =4); POTASSIUM SERUM 3.9 MEQ/L (3.5-5.1); SODIUM LEVEL 143 MEQ/L (136-145); TOTAL PROTEIN 7.2 GM/DL (6.4-8.2); TROPONIN I < 0.02 NG/ML (< 0.10)
[2021-04-04] MEDS ORDERED: ASPI81TA26 PO (12:19)
[2021-04-04] MEDS ORDERED: AMOX500C PO (12:22)
[2021-04-04] MEDS ORDERED: LEVO25TA5 PO (12:24)
[2021-04-04] MEDS ORDERED: UNIS25TA3 PO (12:24)
[2021-04-04] MEDS ORDERED: HOME MED LIST COMPLETE! XX SCH (12:25)
[2021-04-04] MEDS ORDERED: OMEP-218 PO (12:25)
[2021-04-04] MEDS ORDERED: SODIUM CHLORIDE 0.9% INJ 10 ML SYR IV ONE (15:00)
--- NOTE | 2021-04-04 15:34 | HPEPDOC ---
General Date of Admission Apr 04, 2021 at 12:59 Date of Service: Apr 04, 2021 Attending Physician: HOLLIS DE LA GARZA MD Chief Complaint The patient is a 25-year-old female admitted with a reason for visit of Covid- 19, Hypoxia. History of Present Illness HPI Pt is a 25yo F who presents with non-productive cough, low-grade fever, and sore throat since yesterday, preceded by 5 day Hx of sinus congestion and itchy eyes. She currently experiences hypoxia when walking, but c/o no SOB when lying down. Pt also complains of a mild PRECIADO. She has not received her COVID-19 vaccines and came in with her 1 month old baby who is showing URI symptoms. PMHx Suspected Lupus vs. Antiphospholipid Syndrome Sjgren's Syndrome Chronic Anemia-subjective Hypothyroidism Symptomatic Gallstones SxHx 1 month ago FHx Unknown, parents do not regularly see doctor. SHx No Hx tobacco use. Pt is from [place] Pt is . ROS Gen: Denies N, V. HEENT: Admits to PRECIADO, sore in nose, and sore throat. RESP: Denies SOB or difficulty breathing. Denies pain with deep inspiration. CVS: Admits to mild chest discomfort when walking around. Denies palpitations. ABD: Denies abdominal pain. Denies diarrhea or constipation. : Denies dysuria, hematuria. MSK: Denies muscle aches. Skin: Denies rash, swelling. Objective Gen: Pt is pleasant, in no acute distress. She is overweight. No fever. Psych: A+O x3 HEENT: No cervical lymphadenopathy. RESP: CTA b/l, no wheeze, rhonchi, or crackles. CVS: RRR, no murmur, gallop, or rubs. Distal pulses 2/4. ABD: Soft, NT, ND, normoactive bowel sounds. Skin: Normal temp, no rash. EXT: No distal swelling. Imaging Chest X-Ray 04/04: As Reported- 1. There is no acute infiltrate or pulmonary edema. 2. Lungs are clear. 3. The heart is not significantly enlarged. 4. The mediastinal silhouette is unremarkable. 5. The visualized osseous structures are intact. Assessment Pt is a 25yo F with PMHx of Lupus vs. Antiphospholipid Syndrome and Sjgren's Syndrome, managed with Plaquenil, who presents with non-productive cough and sore throat since yesterday preceded by 5 day Hx sinus congestion. On initial evaluation, COVID swab was positive, as was her baby's whom she is with, and Pt is sating 99% while supine, but drops to high 80s while ambulating. Pt is being admitted for monitoring and medical management of her COVID d/t her PMHx and risk of hypercoagulability. Plan 1. COVID-19 CXR was clear, but we will manage medically d/t PMHx and recent child . We will give Remdesivir and Baricitinib. Dexamethasone will be given daily to improve respiratory function. 2. Antiphospholipid Syndrome Pt follows with multiple Rheumatologists who have given different diagnoses. In 2019-Lupus Anticoagulant Ab negative, Antiphospholipid Anticoagulant Ab positive. We are holding Plaquenil d/t admin of Remdesivir and Baricitinib. 3. Sjgren's Syndrome We are holding Plaquenil d/t admin of Remdesivir and Baricitinib. 4. Oral Abscess She started Amoxicillin on 04/02, and we will continue with her 7 day course. 5. Headache We will continue Tylenol PRN for sx relief. 6. Hypothyroidism We will continue her home dose of Levothyroxine. 7. Gallstones We will continue home dose of Ursodiol. 8. DVT Prophylaxis D-dimer WNL. We will give Lovenox 40mg daily. We will continue home dose of Aspirin. Disposition Pt is currently stable and sating well. We will monitor her symptoms and clinical state for any potential decline in status. GME ATTESTATION My faculty preceptor for this patient encounter was physically present during the encounter and was fully available. All aspects of the patient interview, examination, medical decision making process, and medical care plan development were reviewed and approved by the faculty preceptor. The faculty preceptor is aware and concurs with the plan as stated in the body of this note and will attest to such by her co-signature. Home Medications Scheduled Amoxicillin (Amoxicillin) 500 Mg Capsule, 500 MG PO QID, (Reported) FOR 7 DAYS, BEGAN 04/02 Aspirin (Aspirin EC) 81 Mg Tablet.dr, 162 MG PO QHS, (Reported) Cholecalciferol (Vitamin D3) (Vitamin D3) 1,000 Unit Tablet, 2,000 UNITS PO QHS, (Reported) Doxylamine Succinate (Unisom Sleep Aid) 25 Mg Tablet, 25 MG PO QHS, (Reported) Enoxaparin Sodium (Lovenox) 40 Mg/0.4 Ml Syringe, 40 MG SC DAILY, (Reported) Hydroxychloroquine Sulfate (Plaquenil) 200 Mg Tablet, 400 MG PO QHS, (Reported) Levothyroxine Sodium (Levothyroxine Sodium) 25 Mcg Tablet, 25 MCG PO QHS, (Reported) Ursodiol (Ursodiol) 300 Mg Capsule, 300 MG PO QHS, (Reported) Allergies Coded Allergies: oxycodone (Verified Allergy, Intermediate, hives, 06/25/20) adhesive (Verified Allergy, Mild, 06/25/20) GME ATTESTATION My faculty preceptor for this patient encounter was physically present during the encounter and was fully available. All aspects of the patient interview, examination, medical decision making process, and medical care plan development were reviewed and approved by the faculty preceptor. The faculty preceptor is aware and concurs with the plan as stated in the body of this note and will attest to such by his/her cosignature. ATTENDING NOTE I have personally acquired the history of presenting illness, examined the patient and discussed her findings and plan with the housestaff team and I agree with the above summary with the following additions: Briefly, she is a 25 yo obese, recently new mother of a 1m old woman with a prior diagnosis of Lupus and Sjogren's and more recently APLS with positive anticardiolipin antibodies tested here in outpatient rheumatology on plaquenil and lovenox 40 SC at baseline, who is unvaccinated for covid-19 and presented today with URI symptoms and found to be covid-19 positive, as is her 1m old baby. In the ED, her inflammatory markers were mildly elevated and CXR clear but she was noted to be hypoxemic to the 80s on ambulation and so recommended for admission. Given the history of obesity, recently , history of lupus and antiphospholipid antibody syndrome and exertional hypoxemia, she is at risk for severe covid and so we will start her on dexamethasone and remdesevir. I had planned on giving her baricitinib per my discussion with Dr. Beebe but have decided not to based on her history of APLS that puts at high risk for clots with JAK2 inhibitors. Instead, if she clinically declines, I will place her on tocilizumab. A-FIB/CHADSVASC A-FIB History Current/History of A-Fib/PAF?: No Current PO Anticoag Therapy: Yes Vital Signs Vital Signs Date Time Temp Pulse Resp B/P (MAP) Pulse Ox O2 Delivery O2 Flow Rate FiO2 04/04/21 14:30 82 20 141/64 (89) 98 Room Air 04/04/21 13:32 97.9 Laboratory Data Labs 24H Laboratory Tests 2 04/04/21 10:14: Immature Granulocyte % (Auto) 0.2, Neutrophils (%) (Auto) 74.1H, Lymphocytes (%) (Auto) 16.0L, Monocytes (%) (Auto) 7.1, Eosinophils (%) (Auto) 1.8, Basophils (%) (Auto) 0.8, Neutrophils # (Auto) 6.1, Lymphocytes # (Auto) 1.3L, Monocytes # (Auto) 0.6, Eosinophils # (Auto) 0.2, Basophils # (Auto) 0.1, Nucleated Red Blood Cells % (auto) 0.0, Prothrombin Time 12.5, Prothromb Time International Ratio 0.90, Activated Partial Thromboplast Time 35.0, D-Dimer, Quantitative 46 8.77, Anion Gap 7L, Glomerular Filtration Rate > 60.0, Calcium Level 9.5, Total Bilirubin 0.2, Direct Bilirubin < 0.1, Aspartate Amino Transf (AST/SGOT) 18, Alanine Aminotransferase (ALT/SGPT) 55, Alkaline Phosphatase 121H, Total Creatine Kinase 39, Creatine Kinase MB < 1.0, Creatine Kinase MB Relative Index 2.56, Troponin I < 0.02, Total Protein 7.2, Albumin 3.8, Albumin/Globulin Ratio 1.1L, Thyroid Stimulating Hormone (TSH) 2.630, Free Thyroxine 0.92 04/04/21 10:25: POC Group A Strep Rapid Screen NEGATIVE CBC/BMP Laboratory Tests 04/04/21 10:14 Microbiology Microbiology 04/04/21 Group A Streptococcus Screen ([facility]), Received Pending 04/04/21 Respiratory Virus Panel (PCR) ([facility]) - Final, Complete SARS-CoV-2 (COVID 19) Plan / VTE VTE Prophylaxis Ordered?: Yes BRENTON ARZOLA OMS-3 Apr 04, 2021 15:34 SHAWN CHACON D.O. Apr 04, 2021 19:00 HOLLIS DE LA GARZA MD Apr 04, 2021 19:27
[2021-04-04] MEDS ORDERED: REMDESIVIR 200 MG in NS 250 ML IV ONE (16:00)
[2021-04-04] MEDS: AMOXICILLIN 500 MG CAP PO SCH ×2 (17:00→21:08)
[2021-04-04] MEDS: ACETAMINOPHEN TAB 650MG DOSE (2X325MG) PO PRN (18:59)
[2021-04-04 20:00] VITALS: BP 145/66
[2021-04-04] MEDS ORDERED: ASPIRIN 81MG ENTERIC TABLET PO SCH (21:00)
[2021-04-04] MEDS ORDERED: LEVOTHYROXINE 25MCG TABLET (0.025MG) PO SCH (21:00)
[2021-04-04] MEDS ORDERED: VITAMIN D 1,000 INTERNATIONAL UNITS TABLET PO SCH (21:00)
[2021-04-04] MEDS ORDERED: ursodioL 300 MG CAP PO SCH (21:00)
[2021-04-04 23:19] VITALS: O2SAT 98
[2021-04-05] VITALS: BP 143/70
[2021-04-05] MEDS: ACETAMINOPHEN TAB 650MG DOSE (2X325MG) PO PRN ×3 (00:26→13:23)
[2021-04-05 04:00] VITALS: BP 138/66
[2021-04-05 05:13] VITALS: O2SAT 99
--- NOTE | 2021-04-05 07:48 | ECGEPIP ---
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
--- NOTE | 2021-04-05 08:15 | IPNPDOC ---
Text Note Date of Service The patient was seen on 04/05/21. VS,Dia, I+O VS, Fishbone, I+O Laboratory Tests 04/04/21 10:14 Vital Signs Date Time Temp Pulse Resp B/P (MAP) Pulse Ox O2 Delivery O2 Flow Rate FiO2 04/05/21 05:13 99 Room Air 04/05/21 04:00 97.5 76 19 138/66 (90) I&O- Last 24 Hours up to 6 AM 04/05/21 06:00 Intake Total 955 ml Output Total 1450 ml Balance -495 ml BRENTON ARZOLA S-3 Apr 05, 2021 08:15
[2021-04-05] MEDS ORDERED: CHLORASEPTIC SPRAY MT PRN (08:30)
[2021-04-05] MEDS ORDERED: diphenhydrAMINE CREAM 30GM TOP PRN (08:30)
[2021-04-05 08:50] LABS: BASO % 0.4 % (0.0-1.0); EOS % 0.1 % (0.0-3.0); HEMATOCRIT 41.4 % (36.0-47.0); HEMOGLOBIN 13.3 g/dl (12.0-15.5); LYMPH # 1.6 10^3/uL (1.5-5.0); LYMPH % 20.9 % (24.0-44.0); MEAN CORPUSCULAR HEMOGLOBIN 27.8 pg (27.0-33.0); MEAN CORPUSCULAR HGB CONC 32.1 g/dl (32.0-36.5); MEAN CORPUSCULAR VOLUME 86.4 fl (80.0-96.0); MONO # 0.5 10^3/uL (0.0-0.8); MONO % 6.1 % (2.0-8.0); NEUTROPHILS # 5.4 10^3/uL (1.5-8.5); NEUTROPHILS % 72.1 % (36.0-66.0); PLATELET COUNT, AUTOMATED 272 10^3/uL (150-450); RED BLOOD COUNT 4.79 10^6/uL (4.00-5.40); WHITE BLOOD COUNT 7.5 10^3/uL (4.0-10.0)
[2021-04-05] MEDS ORDERED: NS 500 ML IV ONE (08:50)
[2021-04-05] MEDS: AMOXICILLIN 500 MG CAP PO SCH (09:07)
[2021-04-05 09:16] LABS: ALBUMIN 3.7 GM/DL (3.2-5.2); ALT/SGPT 57 U/L (12-78); BILIRUBIN,DIRECT < 0.1 MG/DL (0.0-0.2); BILIRUBIN,TOTAL 0.2 MG/DL (0.2-1.0); BLOOD UREA NITROGEN 6 MG/DL (7-18); CALCIUM LEVEL 9.5 MG/DL (8.5-10.1); CARBON DIOXIDE LEVEL 28 MEQ/L (21-32); CHLORIDE LEVEL 108 MEQ/L (98-107); CREATININE FOR GFR 0.53 MG/DL (0.55-1.30); GLOMERULAR FILTRATION RATE > 60.0 (>60); GLUCOSE, FASTING 102 MG/DL (70-100); MAGNESIUM LEVEL 2.1 MG/DL (1.8-2.4); POTASSIUM SERUM 4.1 MEQ/L (3.5-5.1); SODIUM LEVEL 141 MEQ/L (136-145); TOTAL PROTEIN 7.2 GM/DL (6.4-8.2)
[2021-04-05] MEDS ORDERED: PROAAER10 INH (10:15)
--- NOTE | 2021-04-05 10:45 | DS.PDOC ---
Discharge Summary General Date of Admission Apr 04, 2021 at 12:59 Date of Discharge 04/05/21 Attending Physician: HOLLIS DE LA GARZA MD Discharge Summary PROCEDURES PERFORMED DURING STAY: None ADMITTING DIAGNOSES: 1. COVID-19 2. Antiphospholipid Syndrome 3. Sjgren's Syndrome 4. Oral Abscess 5. Hypothyroidism 6. Symptomatic Gallstones DISCHARGE DIAGNOSES: 1. COVID-19 2. Antiphospholipid Syndrome 3. Sjgren's Syndrome 4. Oral Abscess 5. Hypothyroidism 6. Symptomatic Gallstones COMPLICATIONS/CHIEF COMPLAINT: Covid-19, Exertional Hypoxia. HISTORY OF PRESENT ILLNESS: Pt is a 25yo F 1 month with PMHx of Sjgren's Syndrome, prior diagnos is of Lupus, and more recent diagnosis of Antiphospholipid Syndrome in outpatient rheumatology here based on positive anticardiolipin antibodies, managed with Plaquenil and Lovenox SC at home. She presented with non-productive cough, sore throat, and PRECIADO since Thursday preceded by 5 day Hx sinus congestion and itchy eyes. She was experiencing exertional hypoxia, but c/o no SOB when lying down. She was not vaccinated for COVID-19, and came in with her 1 month old baby who was showing URI symptoms. On initial evaluation, COVID swab was positive, as was her baby's, and Pt was sating 99% while supine, but sat dropped to high 80s while ambulating. HOSPITAL COURSE: Pt stayed 1 night for monitoring and medical management of her COVID d/t her Hx of APLS with associated increased risk of hypercoagulability, recent childbirth, and obesity, which all put her at increased risk for severe COVID. In the ED, CXR was clear and inflammatory markers were mildly elevated. We started Remdesivir and Dexamethasone to prevent clinical decline. For DVT prophylaxis we gave her home doses of Lovenox and Aspirin. We held Plaquenil d/t admin of Remdesivir. She started Amoxicillin for her oral abscess on 04/02, and we continued that. We gave Tylenol PRN for PRECIADO relief. Baricitinib was not given d/t Hx of APLS with high risk for blood clots with JAK2 inhibitors. Phenol spray was given this morning for sore throat, and diphenhydramine was given for relief of mild rash around EKG lead adhesives. Pt complained of a fast heart beat when walking around this morning, which we suspect was related to mild dehydration, therefore NS IV bolus was administered prior to discharge. Pt was stable and sating well today. There was no decline in her clinical status during her stay. Pt was seen and examined at bedside today, and she c/o continued PRECIADO, sore throat and non-productive cough. Overall, there was little change in symptomatology. Denied chest pain, SOB, dysphagia, abdominal pain, or dysuria. DISCHARGE MEDICATIONS: Please see below. ALLERGIES: Please see below. PHYSICAL EXAMINATION ON DISCHARGE: Gen: No fever and in no acute distress. Pt is obese. Psych: A+O x3 HEENT: No cervical lymphadenopathy. RESP: CTA b/l, no wheeze, rhonchi, or crackles. CVS: RRR, no murmur, gallop, or rubs. Distal pulses 2/4. ABD: Soft, NT, ND, normoactive bowel sounds. Skin: No edema, normal temp, no rash. MSK: Plantarflexion strength 5/5 b/l. LABORATORY DATA: Please see below. IMAGING: Chest X-Ray 04/04: As Reported- 1. There is no acute infiltrate or pulmonary edema. 2. Lungs are clear. 3. The heart is not significantly enlarged. 4. The mediastinal silhouette is unremarkable. 5. The visualized osseous structures are intact. PROGNOSIS: Good. ACTIVITY: As tolerated DIET: Regular DISCHARGE PLAN: Resume all home medications. DISPOSITION: Home. DISCHARGE INSTRUCTIONS: 1. Pt can use Albuterol inhaler PRN for any SOB or wheezing. 2. Pt can use Tylenol for fever suppression if needed. 3. Guaifenesin may be used for cough relief. 4. Take Amoxicillin for oral abscess to finish full 7 day course. 5. Hydrate with clear liquids. ITEMS TO FOLLOWUP ON ON OUTPATIENT: 1. Follow up with PCP in 7 days. DISCHARGE CONDITION: Stable TIME SPENT ON DISCHARGE: 45 minutes. GME ATTESTATION My faculty preceptor for this patient encounter was physically present during the encounter and was fully available. All aspects of the patient interview, examination, medical decision making process, and medical care plan development were reviewed and approved by the faculty preceptor. The faculty preceptor is aware and concurs with the plan as stated in the body of this note and will attest to such by her co-signature. Vital Signs/I&Os Vital Signs Date Time Temp Pulse Resp B/P (MAP) Pulse Ox O2 Delivery O2 Flow Rate FiO2 04/05/21 05:13 99 Room Air 04/05/21 04:00 97.5 76 19 138/66 (90) I&O- Last 24 Hours up to 6 AM 04/05/21 06:00 Intake Total 955 ml Output Total 1450 ml Balance -495 ml Laboratory Data Labs 24H Laboratory Tests 2 04/05/21 08:14: Immature Granulocyte % (Auto) 0.4, Neutrophils (%) (Auto) 72.1H, Lymphocytes (%) (Auto) 20.9L, Monocytes (%) (Auto) 6.1, Eosinophils (%) (Auto) 0.1, Basophils (%) (Auto) 0.4, Neutrophils # (Auto) 5.4, Lymphocytes # (Auto) 1.6, Monocytes # (Auto) 0.5, Eosinophils # (Auto) 0.0, Basophils # (Auto) 0.0, Nucleated Red Blood Cells % (auto) 0.0, Anion Gap 5L, Glomerular Filtration Rate > 60.0, Calcium Level 9.5, Magnesium Level 2.1, Total Bilirubin 0.2, Direct Bilirubin < 0.1, Aspartate Amino Transf (AST/SGOT) 22, Alanine Aminotransferase (ALT/SGPT) 57, Alkaline Phosphatase 116, Total Protein 7.2, Albumin 3.7, Albumin/Globulin Ratio 1.1L CBC/BMP Laboratory Tests 04/05/21 08:14 Microbiology Microbiology 04/04/21 Group A Streptococcus Screen ([facility]) - Final, Complete 04/04/21 Respiratory Virus Panel (PCR) ([facility]) - Final, Complete SARS-CoV-2 (COVID 19) Discharge Medications Scheduled Amoxicillin (Amoxicillin) 500 Mg Capsule, 500 MG PO QID, (Reported) FOR 7 DAYS, BEGAN 04/02 Aspirin (Aspirin EC) 81 Mg Tablet.dr, 162 MG PO QHS, (Reported) Cholecalciferol (Vitamin D3) (Vitamin D3) 1,000 Unit Tablet, 2,000 UNITS PO QHS, (Reported) Doxylamine Succinate (Unisom Sleep Aid) 25 Mg Tablet, 25 MG PO QHS, (Reported) Enoxaparin Sodium (Lovenox) 40 Mg/0.4 Ml Syringe, 40 MG SC DAILY, (Reported) Hydroxychloroquine Sulfate (Plaquenil) 200 Mg Tablet, 400 MG PO QHS, (Reported) Levothyroxine Sodium (Levothyroxine Sodium) 25 Mcg Tablet, 25 MCG PO QHS, (Reported) Ursodiol (Ursodiol) 300 Mg Capsule, 300 MG PO QHS, (Reported) Scheduled PRN Albuterol Sulfate (Proair Hfa) 8.5 Gm Hfa.aer.ad, 2 PUFF INH Q4-6HP PRN for wheezing Guaifenesin/Dextromethorphan (Mucinex Dm ER 600-30 mg Tablet) 1 Each Tab.er.12h, 1 TAB PO BIDP PRN for cough and congestion Allergies Coded Allergies: oxycodone (Verified Allergy, Intermediate, hives, 06/25/20) adhesive (Verified Allergy, Mild, 06/25/20) GME ATTESTATION My faculty preceptor for this patient encounter was physically present during the encounter and was fully available. All aspects of the patient interview, examination, medical decision making process, and medical care plan development were reviewed and approved by the faculty preceptor. The faculty preceptor is aware and concurs with the plan as stated in the body of this note and will at test to such by his/her cosignature. ATTENDING NOTE I personally examined Ms. Smiley, and discussed her clinical progression, findings and plan with the resident team, and I agree with the above summary and plan. She is now being discharged home, well technically unfortunately will stay in hospital for her still admitted baby in pediatrics, and in the mean time, I have also decided to give her empiric casarivimab/imdevimab infusion as an outpatient, to reduce the risk for progression to severe covid infection with PNA. BRENTON ARZOLA OMS-3 Apr 05, 2021 10:45 SHAWN CHACON D.O. Apr 05, 2021 18:07 HOLLIS DE LA GARZA MD Apr 06, 2021 11:40
[2021-04-05] MEDS ORDERED: diphenhydrAMINE 50MG CAP PO ONE (12:15)
[2021-04-05] MEDS ORDERED: SODIUM CHLORIDE 0.9% INJ 10 ML SYR IV SCH ×2 (14:00→17:00)
[2021-04-05] MEDS ORDERED: MUCI30TA5 PO (14:03)
[2021-04-05] MEDS ORDERED: REMDESIVIR 100 MG in NS 250 ML IV SCH (16:00)
== END 2021-04-05 13:30 | disposition still patient (30) | DRG 178 ==
LOC: M ED 08:47 → M ED INP 12:59 → ENRESERV 13:45 → M 4MAIN 17:18
PROVIDERS: ADMIT Internal Medicine; ATTEND Internal Medicine
PROC: XW033E5 Introduction of Remdesivir Anti-infective into Peripheral Vein, Percutaneous Approach, New Technology Group 5 (ICD-10-PCS; principal; 2021-04-04)
PROC: 3E0333Z Introduction of Anti-inflammatory into Peripheral Vein, Percutaneous Approach (ICD-10-PCS; 2021-04-04)
DX: U07.1 COVID-19 (principal); D68.61 Antiphospholipid syndrome; K12.2 Cellulitis and abscess of mouth; M35.00 Sjogren syndrome, unspecified; R51.9 Headache, unspecified; E03.9 Hypothyroidism, unspecified; K80.20 Calculus of gallbladder without cholecystitis without obstruction; Z79.82 Long term (current) use of aspirin; Z79.899 Other long term (current) drug therapy; Z88.5 Allergy status to narcotic agent; Z91.048 Other nonmedicinal substance allergy status

== ENCOUNTER 2021-04-05 13:30 | Outpatient (CLI) | payer OTHER ==
[~2021-04-05 13:30] MED LIST changes: +AMOX500C PO; +ASPI81TA26 PO; +LEVO25TA5 PO; +OMEP-173; +OMEP-173 PO; -OMEP-218; +PROAAER10 INH; +UNIS25TA3 PO; +URSO300C3 PO
[2021-04-05] MEDS ORDERED: MUCI30TA5 PO (14:03)
[2021-04-05] MEDS ORDERED: methylPREDNISolone 125MG 2ML VIAL IV PRN (14:05)
[2021-04-05] MEDS ORDERED: ALBUTEROL SULFATE 2.5 MG/0.5 ML INH NEB SOLN INH PRN (14:05)
[2021-04-05] MEDS ORDERED: diphenhydrAMINE 50MG/ML VIAL (J1200) IV PRN (14:05)
[2021-04-05] MEDS ORDERED: EPINEPHrine INJ 1 MG/ML 1ML AMP IM PRN (14:05)
[2021-04-05] MEDS ORDERED: ALBUTEROL 90 MCG/ACT 8GM HFA INHALER INH PRN (14:05)
[2021-04-05] MEDS ORDERED: NS 1,000 ML IV SCH (14:30)
[2021-04-05] MEDS ORDERED: CASIRIVIMAB/IMDEVIMAB 1,200 MG in NS 250 ML IV ONE (15:00)
[2021-04-05 17:14] VITALS: BP 128/67
[2021-07-02] MEDS ORDERED: BUPR15TA PO (14:16)
[2021-07-02] MEDS ORDERED: CITA20TA6 PO (14:16)
[2021-08-28] MEDS ORDERED: NALT50TA4 PO (10:40)
== END 2021-04-05 18:30 ==
LOC: M 4MAIN 13:30 → M OPCLI4 13:30
PROVIDERS: ATTEND Internal Medicine
DX: U07.1 COVID-19 (principal)

== ENCOUNTER → 2021-08-08 | Outpatient (REF) | payer OTHER ==
[~2021-08-08] MED LIST changes: +BUPR15TA PO; +CITA20TA6 PO; +MUCI30TA5 PO; -OMEP-173; -OMEP-173 PO; +OMEP-218; +OMEP-218 PO
== END ==
LOC: M LAB REF 13:34
PROVIDERS: ATTEND Otolaryngology
DX: M35.00 Sjogren syndrome, unspecified (principal)

== ENCOUNTER → 2021-08-09 | Outpatient (REF) | payer OTHER ==
[~2021-08-09] MED LIST changes: +NALT50TA4 PO; +OMEP-173; +OMEP-173 PO; -OMEP-218; -OMEP-218 PO
[2021-08-09 13:38] LABS: BASO # 0.1 10^3/uL (0.0-0.2); BASO % 0.8 % (0.0-1.0); EOS # 0.2 10^3/uL (0.0-0.5); HEMATOCRIT 40.1 % (36.0-47.0); HEMOGLOBIN 12.6 g/dl (12.0-15.5); LYMPH # 1.9 10^3/uL (1.5-5.0); LYMPH % 24.3 % (24.0-44.0); MEAN CORPUSCULAR HGB CONC 31.4 g/dl (32.0-36.5); MEAN CORPUSCULAR VOLUME 86.1 fl (80.0-96.0); MONO # 0.4 10^3/uL (0.0-0.8); MONO % 5.4 % (2.0-8.0); NEUTROPHILS # 5.3 10^3/uL (1.5-8.5); NEUTROPHILS % 67.2 % (36.0-66.0); PLATELET COUNT, AUTOMATED 349 10^3/uL (150-450); RED BLOOD COUNT 4.66 10^6/uL (4.00-5.40); WHITE BLOOD COUNT 7.8 10^3/uL (4.0-10.0)
[2021-08-09 13:41] LABS: APPEARANCE, URINE CLEAR (CLEAR); BACTERIA, URINE AUTO 1+ (NEGATIVE); BILIRUBIN, URINE AUTO NEGATIVE (NEGATIVE); BLOOD, URINE BLOOD 3+ (NEGATIVE); COLOR, URINE YELLOW (YELLOW); GLUCOSE, URINE (UA) AUTO NEGATIVE (NEGATIVE); KETONE, URINE AUTO NEGATIVE (NEGATIVE); LEUKOCYTE ESTERASE, URINE AUTO NEGATIVE (NEGATIVE); NITRITE, URINE AUTO NEGATIVE (NEGATIVE); PROTEIN, URINE AUTO NEGATIVE (NEGATIVE); RBC, URINE AUTO TNTC /HPF (0-3); SPECIFIC GRAVITY URINE AUTO 1.008 (1.002-1.035); SQUAMOUS EPITHELIAL CELL UR AU 1 /HPF (0-6); UROBILINOGEN, URINE AUTO 0.2 mg/dL (0.0-2.0); WBC, URINE AUTO 3 /HPF (0-3)
[2021-08-09 14:11] LABS: COMPLEMENT C3 173 MG/DL (90-180); COMPLEMENT C4 44 MG/DL (10-40)
[2021-08-09 14:14] LABS: CREATININE,RANDOM URINE 54.4 MG/DL; TOTAL PROTEIN,RANDOM URINE 20.5 MG/DL (0.0-12.0)
== END ==
LOC: M SFHCRHEU 11:20
PROVIDERS: ATTEND Internal Medicine
DX: R76.8 Other specified abnormal immunological findings in serum (principal)

== ENCOUNTER 2021-09-09 08:51 | Day surgery (SDC) | payer OTHER ==
[~2021-09-09] VITALS: Ht 154.9 cm; Wt 102.5 kg
[~2021-09-09 08:51] MED LIST changes: +BUPIVACAINE/EPIN 0.25% 30 ML VIAL As Ordered ONE; +LIDOCAINE 1% MDV 20ML VIAL SQ PRN; +LR 1,000 ML IV ONE; -OMEP-173; -OMEP-173 PO; +OMEP-218; +OMEP-218 PO
[2021-09-09] MEDS ORDERED: LIDOCAINE 2% 100MG/5ML SDV (FOR ANES.) As Ordered ONE (09:52)
[2021-09-09] MEDS ORDERED: SUGAMMADEX SODIUM 500 MG/5 ML VIAL (BRIDION) As Ordered ONE (09:52)
[2021-09-09] MEDS ORDERED: ONDANSETRON 4MG/2ML VIAL As Ordered ONE (09:52)
[2021-09-09] MEDS ORDERED: propofoL 200 MG/20 ML VIAL As Ordered ONE (09:52)
[2021-09-09] MEDS ORDERED: dexameTHASONE 4 MG/ML 1ML VIAL (J1100 PER 1MG) As Ordered ONE (09:52)
[2021-09-09] MEDS ORDERED: ROCURONIUM BROMIDE 50 MG/5 ML VIAL As Ordered ONE (09:52)
[2021-09-09] MEDS ORDERED: ACETAMINOPHEN 1000MG 100ML IV BTL (OFIRMEV) (J0131 PER 10MG) As Ordered ONE (09:52)
[2021-09-09] MEDS ORDERED: MIDAZOLAM INJ 2MG/2ML VIAL (J2250 PER 1MG) As Ordered ONE (09:52)
[2021-09-09] MEDS ORDERED: METOCLOPRAMIDE INJ 10MG/2ML VIAL (J2765 PER 1) As Ordered ONE (09:52)
[2021-09-09] MEDS ORDERED: fentaNYL 100 MCG/2 ML INJECTION (J3010) As Ordered ONE ×2 (09:53→11:50)
[2021-09-09] MEDS ORDERED: KETOROLAC 60MG 2ML VIAL As Ordered ONE (11:24)
[2021-09-09] MEDS: fentaNYL 100 MCG/2 ML INJECTION (J3010) IV PRN ×4 (11:51→12:07)
[2021-09-09] MEDS ORDERED: ONDANSETRON 4MG/2ML VIAL IV PRN (12:15)
[2021-09-09] MEDS ORDERED: LR 1,000 ML IV SCH (12:15)
[2021-09-09] MEDS: NORCO, ANEXSIA 5/325MG TABLET (HYDROcodone/ACETAMINOPHEN) PO PRN ×2 (12:17→12:50)
[2021-09-09] MEDS ORDERED: NORCO, ANEXSIA 5/325MG TABLET (HYDROcodone/ACETAMINOPHEN) PO PRN (12:20)
[2021-09-09 13:35] VITALS: BP 129/65
== END 2021-09-09 13:40 | disposition home or self-care (01) ==
LOC: M SDC 08:51
PROVIDERS: ATTEND Surgery
DX: K81.1 Chronic cholecystitis (principal); F41.9 Anxiety disorder, unspecified; F32.9 Major depressive disorder, single episode, unspecified; E07.9 Disorder of thyroid, unspecified; M32.9 Systemic lupus erythematosus, unspecified; M35.00 Sjogren syndrome, unspecified; D68.61 Antiphospholipid syndrome; F17.210 Nicotine dependence, cigarettes, uncomplicated; D50.9 Iron deficiency anemia, unspecified; J44.9 Chronic obstructive pulmonary disease, unspecified; R06.83 Snoring; Z86.16 Personal history of COVID-19; Z87.891 Personal history of nicotine dependence; Z88.8 Allergy status to other drugs, medicaments and biological substances; Z88.5 Allergy status to narcotic agent; Z91.048 Other nonmedicinal substance allergy status; Z79.899 Other long term (current) drug therapy; Z79.82 Long term (current) use of aspirin
CPT/HCPCS: 47562; 81025; 88304; J0131; J1100; J1885; J2250; J2405; J2765; J3010; S2900